=== PATIENT | female | born 1960 | race African-American/Black ===

== ENCOUNTER 2022-04-07 11:37 | Inpatient (IN) | payer OTHER ==
[2022-04-07] MEDS ORDERED: ACETAMINOPHEN 325 MG TABLET (FP) PO PRN ×2 (13:03)
[2022-04-07] MEDS ORDERED: ONDANSETRON *ODT* 4 MG TABLET SL PRN (13:03)
[2022-04-07] MEDS ORDERED: IBUPROFEN 400 MG TABLET (FP) PO PRN (13:03)
[2022-04-07] MEDS ORDERED: BISMUTH SUBSALICYLATE 262 MG/15 ML BTL PO PRN (13:03)
[2022-04-07] MEDS ORDERED: MAGNESIUM CITRATE 300 ML BOTTLE PO PRN (13:03)
[2022-04-07] MEDS ORDERED: BENZOCAINE/MENTHOL (CHLORASEPTIC ) LOZENGE MM PRN (13:03)
[2022-04-07] MEDS ORDERED: METHOCARBAMOL 500 MG TABLET PO PRN (13:03)
[2022-04-07] MEDS ORDERED: diazePAM 5 MG TABLET PO PRN (13:03)
[2022-04-07] MEDS ORDERED: LOPERAMIDE HCL 2 MG CAPSULE PO PRN (13:03)
[2022-04-07] MEDS ORDERED: DICYCLOMINE HCL 10 MG CAPSULE PO PRN (13:03)
[2022-04-07] MEDS ORDERED: MAGNESIUM HYDROX 2400MG/30ML ORAL SUSPENSION 30 ML CUP PO PRN (13:03)
[2022-04-07] MEDS ORDERED: NICOTINE 10 MG CARTRIDGE (INHALER) IH PRN (13:03)
[2022-04-07] MEDS ORDERED: MAG HYDROX/AL HYDROX/SIMETH 30 ML UNIT-DOSE CUP PO PRN (13:03)
[2022-04-07] MEDS ORDERED: ALBUTEROL SO4 HFA INHALER IH PRN (13:07)
[2022-04-07 14:24] VITALS: BMI 21.2
[2022-04-07] MEDS: diazePAM 5 MG TABLET PO SCH ×2 (19:10→23:27)
[2022-04-07] MEDS: hydrOXYzine PAMOATE 25 MG CAPSULE (FP) PO SCH ×3 (19:10→23:27)
[2022-04-07] MEDS: NICOTINE 7 MG/24 HOURS TOPICAL PATCH TD SCH (21:28)
[2022-04-07] MEDS: PRENATAL VITAMINS W/ FOLIC ACID TABLET (FP) PO SCH (21:28)
[2022-04-07] MEDS: MELATONIN 5 MG TABLETS PO SCH (23:26)
[2022-04-07] MEDS: THIAMINE HCL 100 MG TABLET (FP) PO SCH (23:26)
[2022-04-07] MEDS: DOCUSATE SODIUM 100 MG CAPSULE (FP) PO SCH (23:27)
[2022-04-08] MEDS: diazePAM 5 MG TABLET PO SCH ×4 (05:49→23:37)
[2022-04-08] MEDS ORDERED: guaiFENesin 200 MG/10 ML 10 ML UNIT-DOSE CUPS PO PRN (10:22)
[2022-04-08] MEDS: CLOPIDOGREL BISULFATE 75 MG TABLET (FP) PO SCH (10:41)
[2022-04-08] MEDS: PRENATAL VITAMINS W/ FOLIC ACID TABLET (FP) PO SCH (10:41)
[2022-04-08] MEDS: methaDONE HCL 40 MG DISPERSABLE TABLET PO SCH (10:41)
[2022-04-08] MEDS: ASPIRIN 81 MG CHEWABLE TABLETS PO SCH (10:41)
[2022-04-08] MEDS: LISINOPRIL 10 MG TABLET PO SCH (10:42)
[2022-04-08] MEDS: DOCUSATE SODIUM 100 MG CAPSULE (FP) PO SCH ×2 (10:42→23:36)
[2022-04-08] MEDS: NICOTINE 7 MG/24 HOURS TOPICAL PATCH TD SCH (10:43)
[2022-04-08 13:57] LABS: HEMOGLOBIN 10.2 GM/dL (10.7-15.3); MCH 25.1 pg (25.7-33.7); MEAN CELL VOLUME 78.5 fl (80-96); MEAN PLT VOLUME 7.7 fl (7.5-11.1); PLATELET COUNT 277 10^3/uL (134-434); RBC 4.08 M/mm3 (3.60-5.2); RDW 16.5 % (11.6-15.6); WHITE BLOOD COUNT 4.4 K/mm3 (4.0-10.0)
[2022-04-08 14:39] LABS: CALCIUM 8.5 mg/dL (8.5-10.1)
[2022-04-08 14:40] LABS: ALBUMIN 2.5 g/dl (3.4-5.0); BLOOD UREA NITROGEN 13.8 mg/dL (7-18)
[2022-04-08 14:43] LABS: CREATININE 0.7 mg/dL (0.55-1.3)
[2022-04-08 14:44] LABS: TOT PROT 5.4 g/dl (6.4-8.2)
[2022-04-08 14:54] LABS: BILIRUBIN,TOTAL 0.1 mg/dL (0.2-1)
[2022-04-08] MEDS: OLANZapine 5 MG TABLET PO SCH (23:37)
[2022-04-08] MEDS: THIAMINE HCL 100 MG TABLET (FP) PO SCH (23:37)
[2022-04-08] MEDS: MELATONIN 5 MG TABLETS PO SCH (23:37)
[2022-04-09] MEDS: diazePAM 5 MG TABLET PO SCH ×3 (06:45→23:21)
[2022-04-09] MEDS: methaDONE HCL 40 MG DISPERSABLE TABLET PO SCH (06:45)
[2022-04-09] MEDS ORDERED: FLUoxetine HCL 10 MG CAPSULE PO SCH (10:00)
[2022-04-09] MEDS: CLOPIDOGREL BISULFATE 75 MG TABLET (FP) PO SCH (10:24)
[2022-04-09] MEDS: ASPIRIN 81 MG CHEWABLE TABLETS PO SCH (10:24)
[2022-04-09] MEDS: DOCUSATE SODIUM 100 MG CAPSULE (FP) PO SCH ×2 (10:24→23:21)
[2022-04-09] MEDS: LISINOPRIL 10 MG TABLET PO SCH (10:24)
[2022-04-09] MEDS: PRENATAL VITAMINS W/ FOLIC ACID TABLET (FP) PO SCH (10:25)
[2022-04-09] MEDS: NICOTINE 7 MG/24 HOURS TOPICAL PATCH TD SCH (10:25)
[2022-04-09] MEDS: OLANZapine 5 MG TABLET PO SCH ×2 (10:25→23:21)
[2022-04-09 21:43] VITALS: BP 155/79; PULSE 68; TEMP 97.1
[2022-04-09] MEDS: THIAMINE HCL 100 MG TABLET (FP) PO SCH (23:21)
[2022-04-09] MEDS: MELATONIN 5 MG TABLETS PO SCH (23:21)
[2022-04-10 00:11] LABS: SARS-CoV-2 NAA Not Detected (Not Detected)
[2022-04-10] MEDS ORDERED: diazePAM 5 MG TABLET PO SCH (06:00)
[2022-04-10] MEDS: methaDONE HCL 40 MG DISPERSABLE TABLET PO SCH (07:33)
[2022-04-11] MEDS ORDERED: diazePAM 5 MG TABLET PO ONE (06:00)
== END 2022-04-09 23:55 | disposition short-term general hospital (02) | DRG 773 ==
LOC: YASAS 11:37 → Y3N 14:52
PROVIDERS: ADMIT Allergy & Immunology; ATTEND Surgery
PROC: HZ2ZZZZ Detoxification Services for Substance Abuse Treatment (ICD-10-PCS; principal; 2022-04-07)
DX: F10.230 Alcohol dependence with withdrawal, uncomplicated (principal); F11.20 Opioid dependence, uncomplicated; F14.20 Cocaine dependence, uncomplicated; F17.210 Nicotine dependence, cigarettes, uncomplicated; F25.9 Schizoaffective disorder, unspecified; F31.9 Bipolar disorder, unspecified; G40.909 Epilepsy, unspecified, not intractable, without status epilepticus; I48.91 Unspecified atrial fibrillation; I10 Essential (primary) hypertension; J44.9 Chronic obstructive pulmonary disease, unspecified; Z56.0 Unemployment, unspecified; Z59.00 Homelessness unspecified; S22.089A Unspecified fracture of T11-T12 vertebra, initial encounter for closed fracture; S09.90XA Unspecified injury of head, initial encounter; W19.XXXA Unspecified fall, initial encounter; Y92.238 Other place in hospital as the place of occurrence of the external cause
CPT/HCPCS: 36415; 71045-TC-FY; 80053; 85027; 86780; 93005; 93010; C9803-CS; U0003; U0005

== ENCOUNTER 2022-04-09 23:25 | Inpatient (IN) | payer OTHER ==
[2022-04-10] MEDS ORDERED: ACETAMINOPHEN 325 MG TABLET (FP) PO ONE (00:30)
[2022-04-10] MEDS ORDERED: ACETAMINOPHEN 325 MG TABLET (FP) ONE (00:42)
[2022-04-10 04:08] LABS: BASO % 0.8 % (0-2.0); HEMATOCRIT 34.3 % (32.4-45.2); HEMOGLOBIN 11.2 GM/dL (10.7-15.3); LYMPH % 42.8 % (8-40); MCH 25.4 pg (25.7-33.7); MCHC 32.5 g/dl (32.0-36.0); MEAN CELL VOLUME 78.1 fl (80-96); MONO % 10.2 % (3.8-10.2); NEUT % 44.2 % (42.8-82.8); PLATELET COUNT 276 10^3/uL (134-434); RDW 15.9 % (11.6-15.6); WHITE BLOOD COUNT 4.8 K/mm3 (4.0-10.0)
[2022-04-10 04:28] LABS: CALCIUM 8.4 mg/dL (8.5-10.1)
[2022-04-10 04:29] LABS: ALBUMIN 2.7 g/dl (3.4-5.0); BLOOD UREA NITROGEN 17.4 mg/dL (7-18)
[2022-04-10 04:31] LABS: CREATININE 0.9 mg/dL (0.55-1.3)
[2022-04-10 04:33] LABS: BILIRUBIN,TOTAL 0.1 mg/dL (0.2-1); TOT PROT 5.9 g/dl (6.4-8.2)
[2022-04-10] MEDS ORDERED: SODIUM CHLORIDE 1,000 ML IV SCH (05:00)
[2022-04-10] MEDS ORDERED: FOLIC ACID 1 MG TABLET (FP) PO ONE (05:15)
[2022-04-10] MEDS ORDERED: FOLIC ACID 1 MG TABLET (FP) ONE (05:39)
[2022-04-10 05:54] LABS: EPI CELLS 12 /uL (0-25.1); HYALINE CASTS 0 /uL (0-3.1); URINE APPEARANCE CLEAR; URINE BACTERIA 633 /uL (0-1359); URINE BILIRUBIN NEGATIVE (NEGATIVE); URINE COLOR YELLOW; URINE GLUCOSE (UA) NEGATIVE (NEGATIVE); URINE KETONE NEGATIVE (NEGATIVE); URINE LEUK ESTERASE 3+ (NEGATIVE); URINE NITRITE NEGATIVE (NEGATIVE); URINE PROTEIN NEGATIVE (NEGATIVE); URINE RBC 14 /uL (0-23.9); URINE UROBILINOGEN 0.2 mg/dL (0.2-1.0); URINE WBC 156 /uL (0-25.8)
[2022-04-10] MEDS ORDERED: ALBUTEROL SO4 HFA INHALER IH PRN (05:55)
[2022-04-10] MEDS ORDERED: DOCUSATE SODIUM 100 MG CAPSULE (FP) PO ONE ×2 (05:56→06:10)
[2022-04-10] MEDS: diazePAM 5 MG TABLET PO SCH ×4 (06:08→23:41)
[2022-04-10] MEDS: ACETAMINOPHEN 325 MG TABLET (FP) PO SCH ×3 (06:09→17:43)
[2022-04-10 06:22] LABS: OPIATES, URI NEGATIVE (NEGATIVE); URINE BARBITURATES NEGATIVE (NEGATIVE)
[2022-04-10 06:23] LABS: PHENCYCLIDINE,URINE NEGATIVE (NEGATIVE)
[2022-04-10 06:42] LABS: INR 0.94 (0.83-1.09); PROTHROMBIN TIME (PATIENT) 10.8 SEC (9.7-13.0)
[2022-04-10 06:45] LABS: ACTIVATED PTT 31.8 SECONDS (25.2-36.5)
[2022-04-10 06:51] LABS: COCAINE, UR POSITIVE (NEGATIVE); METHADONE, UR POSITIVE (NEGATIVE); URINE AMPHETAMINES NEGATIVE (NEGATIVE); URINE BENZODIAZEPINES POSITIVE (NEGATIVE)
[2022-04-10 10:32] LABS: MAGNESIUM 2.2 mg/dL (1.8-2.4)
[2022-04-10] MEDS: levETIRAcetam 500 MG TABLET (FP) PO SCH ×2 (11:15→21:48)
[2022-04-10] MEDS: POLYETHYLENE GLYCOL (HEALTHYLAX) 3350 17 GM PACKET PO SCH (11:15)
[2022-04-10] MEDS: THIAMINE HCL 100 MG TABLET (FP) PO SCH (11:15)
[2022-04-10] MEDS: LIDOCAINE 5% TOPICAL PATCH TP SCH (12:43)
[2022-04-10] MEDS: diazePAM 5 MG TABLET PO PRN (12:52)
[2022-04-10 12:55] VITALS: BMI 23.3
[2022-04-10] MEDS ORDERED: methaDONE HCL 40 MG DISPERSABLE TABLET PO ONE (13:00)
[2022-04-10] MEDS: HEPARIN NA (PORCINE) 5,000 UNITS/ML 1ML VIAL SQ SCH (21:47)
[2022-04-10] MEDS: LIDOCAINE PATCH REMOVAL MC SCH (21:48)
[2022-04-11] MEDS: diazePAM 5 MG TABLET PO PRN (02:39)
[2022-04-11] MEDS: ACETAMINOPHEN 325 MG TABLET (FP) PO SCH ×5 (02:40→23:44)
[2022-04-11] MEDS: diazePAM 5 MG TABLET PO SCH ×3 (05:59→22:19)
[2022-04-11] MEDS ORDERED: methaDONE HCL 10 MG TABLET PO SCH (07:45)
[2022-04-11] MEDS: POLYETHYLENE GLYCOL (HEALTHYLAX) 3350 17 GM PACKET PO SCH (09:33)
[2022-04-11] MEDS: THIAMINE HCL 100 MG TABLET (FP) PO SCH (09:33)
[2022-04-11] MEDS: levETIRAcetam 500 MG TABLET (FP) PO SCH ×2 (09:33→22:20)
[2022-04-11] MEDS: LIDOCAINE 5% TOPICAL PATCH TP SCH (09:33)
[2022-04-11] MEDS: HEPARIN NA (PORCINE) 5,000 UNITS/ML 1ML VIAL SQ SCH ×2 (09:33→22:20)
[2022-04-11 09:58] LABS: CALCIUM 8.4 mg/dL (8.5-10.1)
[2022-04-11 09:59] LABS: ALBUMIN 2.6 g/dl (3.4-5.0); BLOOD UREA NITROGEN 22.6 mg/dL (7-18); MAGNESIUM 2.2 mg/dL (1.8-2.4)
[2022-04-11 10:02] LABS: CREATININE 0.9 mg/dL (0.55-1.3)
[2022-04-11 10:03] LABS: BILIRUBIN,TOTAL 0.2 mg/dL (0.2-1)
[2022-04-11 10:06] LABS: TOT PROT 5.8 g/dl (6.4-8.2)
[2022-04-11 12:16] LABS: BASO % 0.3 % (0-2.0); EOS % 2.3 % (0-4.5); HEMATOCRIT 32.7 % (32.4-45.2); HEMOGLOBIN 10.6 GM/dL (10.7-15.3); MCH 25.2 pg (25.7-33.7); MCHC 32.3 g/dl (32.0-36.0); MEAN CELL VOLUME 78.1 fl (80-96); MEAN PLT VOLUME 7.4 fl (7.5-11.1); NEUT % 49.4 % (42.8-82.8); PLATELET COUNT 306 10^3/uL (134-434); RBC 4.19 M/mm3 (3.60-5.2); RDW 16.2 % (11.6-15.6); WHITE BLOOD COUNT 5.3 K/mm3 (4.0-10.0)
[2022-04-11] MEDS ORDERED: methaDONE HCL 40 MG DISPERSABLE TABLET PO ONE (15:00)
[2022-04-11] MEDS: LIDOCAINE PATCH REMOVAL MC SCH (22:21)
[2022-04-12] MEDS: diazePAM 5 MG TABLET PO SCH ×2 (06:27→18:08)
[2022-04-12] MEDS: ACETAMINOPHEN 325 MG TABLET (FP) PO SCH ×3 (06:27→18:07)
[2022-04-12 08:25] LABS: BASO % 0.6 % (0-2.0); HEMOGLOBIN 10.5 GM/dL (10.7-15.3); LYMPH % 35.6 % (8-40); MCH 25.1 pg (25.7-33.7); MCHC 31.9 g/dl (32.0-36.0); MEAN CELL VOLUME 78.7 fl (80-96); MEAN PLT VOLUME 7.9 fl (7.5-11.1); MONO % 10.1 % (3.8-10.2); NEUT % 51.7 % (42.8-82.8); PLATELET COUNT 307 10^3/uL (134-434); RBC 4.19 M/mm3 (3.60-5.2); RDW 16.2 % (11.6-15.6); WHITE BLOOD COUNT 6.2 K/mm3 (4.0-10.0)
[2022-04-12 08:39] LABS: CALCIUM 8.7 mg/dL (8.5-10.1)
[2022-04-12 08:41] LABS: ALBUMIN 2.7 g/dl (3.4-5.0); BLOOD UREA NITROGEN 25.3 mg/dL (7-18); MAGNESIUM 2.1 mg/dL (1.8-2.4)
[2022-04-12 08:44] LABS: CREATININE 0.9 mg/dL (0.55-1.3)
[2022-04-12 08:45] LABS: BILIRUBIN,TOTAL 0.1 mg/dL (0.2-1)
[2022-04-12] MEDS ORDERED: SODIUM ZIRCONIUM CYCLOSILICATE (LOKELMA) 5 GM PACKET PO ONE (09:15)
[2022-04-12] MEDS: levETIRAcetam 500 MG TABLET (FP) PO SCH ×2 (10:27→21:32)
[2022-04-12] MEDS: POLYETHYLENE GLYCOL (HEALTHYLAX) 3350 17 GM PACKET PO SCH (10:27)
[2022-04-12] MEDS: THIAMINE HCL 100 MG TABLET (FP) PO SCH (10:27)
[2022-04-12] MEDS: HEPARIN NA (PORCINE) 5,000 UNITS/ML 1ML VIAL SQ SCH ×2 (10:28→21:31)
[2022-04-12] MEDS: LIDOCAINE 5% TOPICAL PATCH TP SCH (10:29)
[2022-04-12] MEDS ORDERED: methaDONE HCL 40 MG DISPERSABLE TABLET PO ONE (11:15)
[2022-04-12] MEDS: LIDOCAINE PATCH REMOVAL MC SCH (21:32)
[2022-04-12] MEDS: QUEtiapine FUMARATE 100 MG TABLET (FP) PO SCH (21:32)
[2022-04-12] MEDS: DOCUSATE SODIUM 100 MG CAPSULE (FP) PO SCH (21:32)
[2022-04-13] MEDS: ACETAMINOPHEN 325 MG TABLET (FP) PO SCH ×5 (00:59→23:54)
[2022-04-13] MEDS ORDERED: diazePAM 5 MG TABLET PO ONE (06:00)
[2022-04-13 08:57] LABS: BASO % 0.5 % (0-2.0); EOS % 1.4 % (0-4.5); HEMATOCRIT 33.1 % (32.4-45.2); HEMOGLOBIN 10.6 GM/dL (10.7-15.3); LYMPH % 28.1 % (8-40); MCH 24.9 pg (25.7-33.7); MEAN CELL VOLUME 77.9 fl (80-96); MONO % 10.5 % (3.8-10.2); NEUT % 59.5 % (42.8-82.8); PLATELET COUNT 302 10^3/uL (134-434); RBC 4.25 M/mm3 (3.60-5.2); RDW 16.3 % (11.6-15.6); WHITE BLOOD COUNT 7.8 K/mm3 (4.0-10.0)
[2022-04-13 09:32] LABS: ALBUMIN 2.7 g/dl (3.4-5.0); CALCIUM 8.5 mg/dL (8.5-10.1)
[2022-04-13 09:33] LABS: BLOOD UREA NITROGEN 21.2 mg/dL (7-18); MAGNESIUM 2.1 mg/dL (1.8-2.4)
[2022-04-13 09:35] LABS: CREATININE 0.8 mg/dL (0.55-1.3)
[2022-04-13 09:37] LABS: BILIRUBIN,TOTAL 0.2 mg/dL (0.2-1); TOT PROT 6.2 g/dl (6.4-8.2)
[2022-04-13] MEDS: levETIRAcetam 500 MG TABLET (FP) PO SCH ×2 (10:54→22:06)
[2022-04-13] MEDS: POLYETHYLENE GLYCOL (HEALTHYLAX) 3350 17 GM PACKET PO SCH (10:54)
[2022-04-13] MEDS: LIDOCAINE 5% TOPICAL PATCH TP SCH (10:54)
[2022-04-13] MEDS: DOCUSATE SODIUM 100 MG CAPSULE (FP) PO SCH ×2 (10:54→22:06)
[2022-04-13] MEDS: CLOPIDOGREL BISULFATE 75 MG TABLET (FP) PO SCH (10:54)
[2022-04-13] MEDS: ASPIRIN 81 MG CHEWABLE TABLETS PO SCH (10:54)
[2022-04-13] MEDS: HEPARIN NA (PORCINE) 5,000 UNITS/ML 1ML VIAL SQ SCH ×2 (10:54→22:06)
[2022-04-13] MEDS: FLUoxetine HCL 20 MG CAPSULE PO SCH (10:55)
[2022-04-13] MEDS: QUEtiapine FUMARATE 100 MG TABLET (FP) PO SCH (10:55)
[2022-04-13] MEDS: THIAMINE HCL 100 MG TABLET (FP) PO SCH (10:55)
[2022-04-13] MEDS ORDERED: SODIUM ZIRCONIUM CYCLOSILICATE (LOKELMA) 5 GM PACKET PO SCH (18:45)
[2022-04-13] MEDS: LIDOCAINE PATCH REMOVAL MC SCH (22:08)
[2022-04-14] MEDS ORDERED: methaDONE HCL 40 MG DISPERSABLE TABLET PO SCH (06:00)
[2022-04-14] MEDS: ACETAMINOPHEN 325 MG TABLET (FP) PO SCH ×3 (06:42→17:49)
[2022-04-14 07:47] LABS: BASO % 0.4 % (0-2.0); EOS % 1.3 % (0-4.5); HEMATOCRIT 33.8 % (32.4-45.2); HEMOGLOBIN 11.2 GM/dL (10.7-15.3); LYMPH % 28.1 % (8-40); MCH 25.7 pg (25.7-33.7); MCHC 33.2 g/dl (32.0-36.0); MEAN CELL VOLUME 77.7 fl (80-96); MEAN PLT VOLUME 7.6 fl (7.5-11.1); MONO % 12.3 % (3.8-10.2); NEUT % 57.9 % (42.8-82.8); PLATELET COUNT 249 10^3/uL (134-434); RBC 4.35 M/mm3 (3.60-5.2); RDW 16.7 % (11.6-15.6); WHITE BLOOD COUNT 6.9 K/mm3 (4.0-10.0)
[2022-04-14 08:03] LABS: MAGNESIUM 2.2 mg/dL (1.8-2.4)
[2022-04-14 08:06] LABS: CREATININE 0.8 mg/dL (0.55-1.3)
[2022-04-14 08:08] LABS: BILIRUBIN,TOTAL 0.3 mg/dL (0.2-1); TOT PROT 6.6 g/dl (6.4-8.2)
[2022-04-14] MEDS ORDERED: SODIUM ZIRCONIUM CYCLOSILICATE (LOKELMA) 5 GM PACKET PO SCH (10:00)
[2022-04-14] MEDS: HEPARIN NA (PORCINE) 5,000 UNITS/ML 1ML VIAL SQ SCH ×2 (11:24→21:00)
[2022-04-14] MEDS: DOCUSATE SODIUM 100 MG CAPSULE (FP) PO SCH ×2 (11:24→21:01)
[2022-04-14] MEDS: ASPIRIN 81 MG CHEWABLE TABLETS PO SCH (11:24)
[2022-04-14] MEDS: levETIRAcetam 500 MG TABLET (FP) PO SCH ×2 (11:24→21:01)
[2022-04-14] MEDS: POLYETHYLENE GLYCOL (HEALTHYLAX) 3350 17 GM PACKET PO SCH (11:24)
[2022-04-14] MEDS: LIDOCAINE 5% TOPICAL PATCH TP SCH (11:24)
[2022-04-14] MEDS: FLUoxetine HCL 20 MG CAPSULE PO SCH (11:25)
[2022-04-14] MEDS: CLOPIDOGREL BISULFATE 75 MG TABLET (FP) PO SCH (11:25)
[2022-04-14] MEDS: THIAMINE HCL 100 MG TABLET (FP) PO SCH (11:25)
[2022-04-14] MEDS: LIDOCAINE PATCH REMOVAL MC SCH (22:09)
[2022-04-15] MEDS: ACETAMINOPHEN 325 MG TABLET (FP) PO SCH ×4 (01:53→18:18)
[2022-04-15] MEDS ORDERED: ALBUTEROL SO4 HFA INHALER IH PRN (08:04)
[2022-04-15] MEDS: POLYETHYLENE GLYCOL (HEALTHYLAX) 3350 17 GM PACKET PO SCH (09:20)
[2022-04-15] MEDS: levETIRAcetam 500 MG TABLET (FP) PO SCH ×2 (09:21→20:59)
[2022-04-15] MEDS: CLOPIDOGREL BISULFATE 75 MG TABLET (FP) PO SCH (09:21)
[2022-04-15] MEDS: FLUoxetine HCL 20 MG CAPSULE PO SCH (09:21)
[2022-04-15] MEDS: ASPIRIN 81 MG CHEWABLE TABLETS PO SCH (09:21)
[2022-04-15] MEDS: THIAMINE HCL 100 MG TABLET (FP) PO SCH (09:21)
[2022-04-15] MEDS: DOCUSATE SODIUM 100 MG CAPSULE (FP) PO SCH ×2 (09:22→20:59)
[2022-04-15] MEDS: HEPARIN NA (PORCINE) 5,000 UNITS/ML 1ML VIAL SQ SCH ×2 (09:22→20:59)
[2022-04-15] MEDS ORDERED: SODIUM ZIRCONIUM CYCLOSILICATE (LOKELMA) 5 GM PACKET PO SCH (10:00)
[2022-04-15] MEDS ORDERED: LIDOCAINE 5% TOPICAL PATCH TP SCH ×2 (10:00→13:29)
[2022-04-15] MEDS ORDERED: IBUPROFEN 400 MG TABLET (FP) PO ONE (21:01)
[2022-04-15] MEDS ORDERED: FAMOTIDINE 20 MG TABLET PO ONE (21:56)
[2022-04-15] MEDS ORDERED: MAG HYDROX/AL HYDROX/SIMETH -MYLANTA- ORAL SUSPENSION PO ONE (21:56)
[2022-04-15] MEDS ORDERED: LIDOCAINE PATCH REMOVAL MC SCH (22:00)
[2022-04-16] MEDS: ACETAMINOPHEN 325 MG TABLET (FP) PO SCH ×3 (05:17→13:40)
[2022-04-16 10:21] LABS: BASO % 0.8 % (0-2.0); EOS % 2.1 % (0-4.5); HEMATOCRIT 34.9 % (32.4-45.2); HEMOGLOBIN 11.1 GM/dL (10.7-15.3); LYMPH % 34.2 % (8-40); MCH 24.9 pg (25.7-33.7); MCHC 31.8 g/dl (32.0-36.0); MEAN CELL VOLUME 78.3 fl (80-96); MEAN PLT VOLUME 7.8 fl (7.5-11.1); MONO % 9.2 % (3.8-10.2); NEUT % 53.7 % (42.8-82.8); PLATELET COUNT 332 10^3/uL (134-434); RBC 4.46 M/mm3 (3.60-5.2); RDW 16.3 % (11.6-15.6); WHITE BLOOD COUNT 4.6 K/mm3 (4.0-10.0)
[2022-04-16 10:43] LABS: ALBUMIN 2.9 g/dl (3.4-5.0); BLOOD UREA NITROGEN 32.6 mg/dL (7-18); CALCIUM 8.7 mg/dL (8.5-10.1); MAGNESIUM 2.6 mg/dL (1.8-2.4)
[2022-04-16 10:46] LABS: CREATININE 0.9 mg/dL (0.55-1.3)
[2022-04-16 10:48] LABS: BILIRUBIN,TOTAL 0.1 mg/dL (0.2-1); TOT PROT 6.7 g/dl (6.4-8.2)
[2022-04-16] MEDS: ASPIRIN 81 MG CHEWABLE TABLETS PO SCH (13:37)
[2022-04-16] MEDS: POLYETHYLENE GLYCOL (HEALTHYLAX) 3350 17 GM PACKET PO SCH (13:37)
[2022-04-16] MEDS: DOCUSATE SODIUM 100 MG CAPSULE (FP) PO SCH (13:37)
[2022-04-16] MEDS: CLOPIDOGREL BISULFATE 75 MG TABLET (FP) PO SCH (13:38)
[2022-04-16] MEDS: FLUoxetine HCL 20 MG CAPSULE PO SCH (13:38)
[2022-04-16] MEDS: levETIRAcetam 500 MG TABLET (FP) PO SCH (13:38)
[2022-04-16] MEDS: THIAMINE HCL 100 MG TABLET (FP) PO SCH (13:41)
[2022-04-16] MEDS: HEPARIN NA (PORCINE) 5,000 UNITS/ML 1ML VIAL SQ SCH (13:41)
[2022-04-16 15:43] VITALS: BP 116/63; PULSE 60; TEMP 98.1
== END 2022-04-16 17:38 | DRG 347 ==
LOC: JER 23:25 → JERBED 04-10 02:14 → J4S 04-10 08:51 → J8W 04-14 20:00
PROVIDERS: ADMIT Hospitalist; ATTEND Nurse Practitioner Acute Care
DX: S22.089A Unspecified fracture of T11-T12 vertebra, initial encounter for closed fracture (principal); R64 Cachexia; F11.20 Opioid dependence, uncomplicated; G40.909 Epilepsy, unspecified, not intractable, without status epilepticus; I10 Essential (primary) hypertension; I48.91 Unspecified atrial fibrillation; F14.20 Cocaine dependence, uncomplicated; F20.9 Schizophrenia, unspecified; F10.10 Alcohol abuse, uncomplicated; F31.9 Bipolar disorder, unspecified; R53.83 Other fatigue; W19.XXXA Unspecified fall, initial encounter; Y93.9 Activity, unspecified; Y92.89 Other specified places as the place of occurrence of the external cause; Y99.9 Unspecified external cause status; Z68.23 Body mass index [BMI] 23.0-23.9, adult
CPT/HCPCS: 36415; 70450-TC; 72125-TC; 72128-TC; 72146-TC; 80053; 80307; 81003; 83735; 84484; 85025; 85610; 85730; 86850; 86900; 86901; 87086; 93005; 93010; 93306-TC; 93880-TC; 97116-GP; 99285-25; C9803-CS; J1644; U0003; U0005